=== PATIENT | male | born 1985 | race Caucasian/White ===

== ENCOUNTER 2019-01-03 11:20 | Emergency (ER) | payer OTHER ==
--- NOTE | 2019-01-03 12:11 | ED Physician Documentation ---
PD HPI BACK INJURY - Stated complaint Stated Complaint: BACK PX - History obtained from History obtained from: Patient - History of Present Illness Location: Right, Left (has had pain left lower lumbar with radiation to left posterior leg and numbness at times. No weakness. Has seen PMD at [facility] and had Xray last week, and referring for accupuncture and PT. Rx Flexeril and tramadol, meloxicam. Had been doing okay. Last night, just bent over and felt a pop and abrupt pain to right low back, with spasms and pain on ROM. No new neuro symptoms. No bladder difficulty. Meds at home not effective.), Lower Type of injury: Twist Where injury occurred: Home Timing - onset: Last night (with new pain abruptly on right side.) Timing - details: Abrupt onset, Still present Quality: Pain, Spasm, Aching Improved by: No: Rest, Ice, Meds Worsened by: Moving, Palpating Associated symptoms: Numbness (left posterior leg intermittent.). No: Fever, Weakness, Incontinent of urine Similar symptoms before: No diagnosis (presumed disc/pinched nerve with left leg symptoms and low back pain the past month or more. Had not had the abrupt pain until last night.) Recently seen: Clinic ([facility] last week with xray and Rx as noted above.) Review of Systems Constitutional: denies: Fever, Chills Nose: denies: Rhinorrhea / runny nose, Congestion Throat: denies: Sore throat Respiratory: denies: Cough GI: denies: Abdominal Pain, Nausea, Vomiting, Diarrhea Skin: denies: Rash, Lesions PD PAST MEDICAL HISTORY - Past Medical History Cardiovascular: None Respiratory: None Neuro: None Endocrine/Autoimmune: None Musculoskeletal: Chronic back pain (for past month or more. ) - Present Medications Home Medications: Ambulatory Orders Medication Instructions Recorded Confirmed Oxycodone HCl/Acetaminophen 1 each PO Q6H PRN #20 tablet 01/03/19 [Oxycodone-Acetaminophen 5-325] Tramadol HCl [Tramadol HCl ER] 100 mg PO 01/03/19 01/03/19 dexAMETHasone [Decadron] 4 mg PO DAILY #5 tablet 01/03/19 diazePAM [Diazepam] 5 mg PO TID PRN #20 tablet 01/03/19 - Allergies Allergies/Adverse Reactions: Allergies Allergy/AdvReac Type Severity Reaction Status Date / Time No Known Drug Allergies Allergy Verified 01/03/19 11:28 - Social History Does the pt smoke?: No Smoking Status: Former smoker Does the pt have substance abuse?: No PD ED PE NORMAL - Vitals Vital signs reviewed: Yes - General General: Alert and oriented X 3, Well developed/nourished, Other (appears in considerable pain and is tilted to right some in low back c/w spasms. Very guarded ROM. ) - Neck Neck: Supple, no meningeal sign, No adenopathy - Cardiac Cardiac: RRR, No murmur - Respiratory Respiratory: Clear bilaterally - Abdomen Abdomen: Normal bowel sounds, Soft, Non tender, Non distended - Back Back: Other (Tender both left and right muscles, more to right, with spasms felt. ) - Derm Derm: Normal color, Warm and dry - Extremities Extremities: Normal ROM s pain, No edema, No calf tenderness / cord - Neuro Neuro: Alert and oriented X 3, No motor deficit, Other (lessened sensation to touch posterior calf and thigh, c/w L5. But normal motor in legs/feet and normal knee reflexes. ) Results - Vitals Vitals: Vital Signs - 24 hr 01/03/19 01/03/19 11:27 14:12 Temperature 36.9 C 36.9 C Heart Rate 81 76 Respiratory 20 20 Rate Blood Pressure 158/82 H 153/79 H O2 Saturation 100 97 Oxygen O2 Source Room air - Rads (name of study) lumbar CT Radiology: Prelim report reviewed (L5 left herniated disc and osteophytes impinging to the left L5 and S1 foramina. No central herniation. ), See rad report PD MEDICAL DECISION MAKING - ED course Complexity details: re-evaluated patient (improved fairly well with IM meds. ), considered differential (has symptoms suggestive of disc/nerve root to left for awhile (1-2 months) but now abrupt pain last night with just bending. No neuro symptoms but abrupt pain so consider potential bony process too. Can get CT to eval. ), d/w patient Departure - Departure Disposition: 01 Home, Self Care Clinical Impression: Lumbar disc herniation with radiculopathy Acute lumbar myofascial strain Qualifiers: Encounter type: initial encounter Qualified Code(s): S39.012A - Strain of muscle, fascia and tendon of lower back, initial encounter Condition: Stable Record reviewed to determine appropriate education?: Yes Instructions: ED Sprain Strain Lumbar [facility] [Provider Group] Prescriptions: dexAMETHasone [Decadron] 4 mg PO DAILY #5 tablet diazePAM [Diazepam] 5 mg PO TID PRN #20 tablet PRN Reason: Spasms Oxycodone HCl/Acetaminophen [Oxycodone-Acetaminophen 5-325] 1 each PO Q6H PRN #20 tablet PRN Reason: Pain Comments: Heat and gentle stretching for the back. Massage or chiropractic can help as well with the spasms and alignment in the short-term. Continue your meloxicam anti-inflammatory. Add Decadron steroid anti- inflammatory as well. Add diazepam muscle relaxant in the short-term which will be a little stronger than your current cyclobenzaprine. Return to your cyclobenzaprine after that. Add Tylenol or oxycodone if needed short-term for worse pain. I would anticipate improvement in the pain down to about mild baseline as you had previously over the next several days to a week. [facility]. There is a herniated disc at the L5/S1 with some osteophytes as well that are showing impingement on the L5 and S1 nerve roots. The main canal is not impinged. Forms: Activity restrictions Discharge Date/Time: 01/03/19 14:13
[2019-01-03] MEDS ORDERED: HYDROmorphone 1 MG/ML CARPUJECT IM STA (12:32)
[2019-01-03] MEDS ORDERED: KETOROLAC 60 MG/2 ML VIAL IM STA (12:32)
[2019-01-03] MEDS ORDERED: diazePAM 5 MG TABLET PO STA (12:33)
--- NOTE | 2019-01-03 13:29 | CT Report ---
Reason: abrupt low back pain last evening with bending Procedure Date: 01/03/2019 Accession Number: [id number] / [id number] Procedure: CT - LUMBAR SPINE WO CPT Code: FULL RESULT: EXAM: CT LUMBAR SPINE WITHOUT CONTRAST EXAM DATE: 01/03/2019 12:51 PM. CLINICAL HISTORY: Abrupt low back pain last evening with bending. COMPARISONS: None. TECHNIQUE: Thin-section axial images were acquired of the lumbar spine from T12 to S1 without contrast. Post-processing: Coronal and sagittal reformats. Other: None. In accordance with CT protocol optimization, one or more of the following dose reduction techniques were utilized for this exam: automated exposure control, adjustment of mA and/or KV based on patient size, or use of iterative reconstructive technique. FINDINGS: Alignment: No scoliosis or spondylolisthesis. Bones: Five fmi-ena-chogore lumbar vertebral bodies are present. There is a small endplate anomaly at the inferior endplate of T11. Disk Levels/Facets: T12-L1: Unremarkable. L1-L2: Unremarkable. L2-L3: Unremarkable. L3-L4: There is a right paracentral disk protrusion causing mild canal narrowing. The foramina are patent. L4-L5: There is a broad-based posterior disk bulge causing mild canal narrowing. There is minimal foraminal narrowing. L5-S1: There is a left paracentral disk protrusion with osteophyte formation posteriorly deviating the left S1 nerve root in the lateral recess. There is mild canal narrowing. There is moderate left foraminal narrowing, with osteophytes contacting the left L5 nerve root in the neural foramen. The right neural foramen is patent. Musculature: Normal. No fatty atrophy. Other: The visualized retroperitoneum is unremarkable. IMPRESSION: 1. Mild degenerative change. 2. L5-S1: Left paracentral disk protrusion with osteophyte formation posteriorly deviating the left S1 nerve root in the lateral recess. Moderate left foraminal narrowing. Osteophytes contact the left L5 nerve root in the neural foramen. RADIA
[2019-01-03] MEDS ORDERED: oxyCODONE 5 MG TABLET PO STA (13:55)
[2019-01-03] MEDS ORDERED: CHERRY SYRUP 10 ML UDC PO ONE (13:56)
[2019-01-03] MEDS ORDERED: DEXAMETHASONE 10 MG/ML VIAL PO STA (13:56)
[2019-01-03 14:13] VITALS: BP 153/79
== END 2019-01-03 14:13 | disposition home or self-care (01) ==
LOC: ED 11:20
DX: S39.012A Strain of muscle, fascia and tendon of lower back, initial encounter (principal); M51.16 Intervertebral disc disorders with radiculopathy, lumbar region; X58.XXXA Exposure to other specified factors, initial encounter; Y92.009 Unspecified place in unspecified non-institutional (private) residence as the place of occurrence of the external cause
CPT/HCPCS: 72131; 96372; 99284; A9270; J1170

== ENCOUNTER 2019-02-05 13:45 | Outpatient (CLI) | payer OTHER ==
--- NOTE | 2019-02-05 16:52 | Ultrasound Report ---
Reason: LEFT INGUINAL DISCOMFORT Procedure Date: 02/05/2019 Accession Number: [id number] / [id number] Procedure: US - Pelvic Limited or F/U CPT Code: Final Report FULL RESULT: EXAM: LEFT INGUINAL ULTRASOUND EXAM DATE: 02/05/2019 02:27 PM. CLINICAL HISTORY: LEFT INGUINAL DISCOMFORT. COMPARISON: None. TECHNIQUE: Real-time sonographic imaging of the left inguinal canal and vascular structures, including color-flow, was performed by the orange grower. Multiple financial service representative static images were saved for review. FINDINGS: Hernia: None identified with or without Valsalva. Soft Tissues: Normal. No fluid collections or adenopathy. Other: None. IMPRESSION: Cage Clerk unable to elicit a left inguinal hernia without and with provocative maneuvers. RADIA
== END 2019-02-05 13:46 | disposition home or self-care (01) ==
LOC: DI 13:45
PROVIDERS: ATTEND Physician Assistant
DX: R10.30 Lower abdominal pain, unspecified (principal)
CPT/HCPCS: 76857

== ENCOUNTER 2019-02-19 13:18 | Outpatient (CLI) | payer OTHER ==
--- NOTE | 2019-02-20 16:31 | MRI Report ---
Reason: LOW BACK PAIN Procedure Date: 02/19/2019 Accession Number: [id number] / [id number] Procedure: MRI - Lumbar Spine W/O CPT Code: Final Report FULL RESULT: EXAM: MRI LUMBAR SPINE WITHOUT CONTRAST EXAM DATE: 02/19/2019 02:01 PM. CLINICAL HISTORY: Low back pain. COMPARISON: LUMBAR SPINE W/O 01/03/2019 12:45 PM. TECHNIQUE: Multiplanar, multisequence T1-weighted and fluid-sensitive sequences of the lumbar spine from T12 to S1 without contrast. Other: None. FINDINGS: Spinal Canal: The conus terminates at L1-L2. The conus medullaris and cauda equina are unremarkable. Alignment: There is a 2 mm retrolisthesis at L4-L5. Bone Marrow: Five rbx-vsb-xzwozsx lumbar vertebral bodies are assumed. No gross fractures or bone lesions. No bone marrow replacement. Disk Levels/Facets: T12-L1: Unremarkable. L1-L2: Unremarkable. L2-L3: Unremarkable. L3-L4: There is a central and right paracentral disk extrusion extending superiorly over the posterior surface of the L3 vertebral body. It causes mild canal narrowing. There is mild bilateral foraminal narrowing. L4-L5: There is a left paracentral annular tear with a small disk extrusion contacting the left L5 nerve root in the lateral recess. There is mild canal narrowing. There is minimal foraminal narrowing. L5-S1: There is a broad-based posterior disk bulge. There is a left paracentral disk osteophyte complex. The findings cause mild canal narrowing. The disk osteophyte complex contacts the left S1 nerve root. There is mild bilateral foraminal narrowing. Musculature: Normal. No edema or fatty atrophy. Other: The partially visualized retroperitoneum is unremarkable. IMPRESSION: 1. L3-L4: There is a central and right paracentral disk extrusion causing mild canal narrowing. There is mild bilateral foraminal narrowing. 2. L4-L5: There is a left paracentral annular tear with a small disk extrusion contacting the left L5 nerve root in the lateral recess. There is mild canal narrowing. There is minimal foraminal narrowing. 3. L5-S1: There is a left paracentral disk osteophyte complex causing mild canal narrowing. The disk osteophyte complex contacts the left S1 nerve root. There is mild bilateral foraminal narrowing. Comment: The following findings are so common in adults without low back pain that while we report their presence, they must be interpreted with caution and in the context of the clinical situation. (Reference Karolinak et al, Spine 2001) Prevalence of findings in patients without low back pain: Disk degeneration (any evidence): 92% Disk desiccation/T2 signal loss: 83% Disk height loss: 56% Disk bulge: 64% Disk protrusion: 32% Annular tear/high intensity zone: 38% RADIA
== END 2019-02-19 13:19 | disposition home or self-care (01) ==
LOC: DI 13:18
PROVIDERS: ATTEND Physician Assistant
DX: M51.16 Intervertebral disc disorders with radiculopathy, lumbar region (principal); M25.78 Osteophyte, vertebrae
CPT/HCPCS: 72148

== ENCOUNTER 2019-03-13 16:32 | Emergency (ER) | payer OTHER ==
[2019-03-13] MEDS ORDERED: BACITRACIN ZINC OINT 1 PACKET TOP STA (17:34)
--- NOTE | 2019-03-13 17:36 | ED Physician Documentation ---
PD HPI UPPER EXT INJURY - Stated complaint Stated Complaint: RT FOREARM LAC - Chief complaint Chief Complaint: Laceration - History obtained from History obtained from: Patient - History of Present Illness Location: Right, Forearm Type of injury: Laceration Where injury occurred: Work Timing - onset: How many hours ago (5) Timing - duration: Hours (5) Timing - details: Abrupt onset Pain level max: 3 Pain level now: 3 Improved by: Rest Worsened by: Moving, Palpating Associated symptoms: No: Weakness, Numbness, Tingling, Swelling - Additonal information Additional information: cut on titanium airplane part fin. TD UTD. Pt is right handed. Review of Systems Constitutional: denies: Fever, Chills Skin: denies: Rash Musculoskeletal: denies: Neck pain, Back pain Neurologic: denies: Headache PD PAST MEDICAL HISTORY - Past Medical History Cardiovascular: None Respiratory: None Neuro: None Endocrine/Autoimmune: None Musculoskeletal: Chronic back pain - Present Medications Home Medications: Ambulatory Orders Medication Instructions Recorded Confirmed Oxycodone HCl/Acetaminophen 1 each PO Q6H PRN #20 tablet 01/03/19 [Oxycodone-Acetaminophen 5-325] Tramadol HCl [Tramadol HCl ER] 100 mg PO 01/03/19 01/03/19 dexAMETHasone [Decadron] 4 mg PO DAILY #5 tablet 01/03/19 diazePAM [Diazepam] 5 mg PO TID PRN #20 tablet 01/03/19 - Allergies Allergies/Adverse Reactions: Allergies Allergy/AdvReac Type Severity Reaction Status Date / Time No Known Drug Allergies Allergy Verified 01/03/19 11:28 - Social History Does the pt smoke?: No Smoking Status: Never smoker Does the pt have substance abuse?: No PD ED PE NORMAL - Vitals Vital signs reviewed: Yes - General General: Alert and oriented X 3, No acute distress - HEENT HEENT: Moist mucous membranes - Neck Neck: Supple, no meningeal sign - Derm Derm: Warm and dry - Extremities Extremities: Other (2 cm laceration to the volar aspect of the mid forearm. Neurovascularly intact. No evidence of tendon injury.) - Neuro Neuro: Alert and oriented X 3 - Psych Psych: Normal mood, Normal affect Results - Vitals Vitals: Vital Signs - 24 hr 03/13/19 16:39 Temperature 36.8 C Heart Rate 80 Respiratory 18 Rate Blood Pressure 141/83 H O2 Saturation 99 Oxygen O2 Source Room air Procedures - Laceration (location) Right forearm Length in cm: 2 Wound type: Linear, Into subcut fat, Clean Neurovascular status: Sensory intact, Motor intact, Vascular intact Tendon involvement: Tendon intact. No: Tendon Injury Wound Preparation: Irrigated copiously NS Skin layer closure: [place] (3) Other: Patient tolerated well, No complications, Neurovascular intact, Dressing applied, Tetanus UTD Complexity: Simple PD MEDICAL DECISION MAKING - ED course Complexity details: considered differential, d/w patient ED course: Laceration repaired. Tolerated well. Neurovascularly intact. Tetanus is up-to-date. Patient is right-handed. Warnings of infection and instructions on wound care given at bedside. Also counseled on how to minimize scarring. Patient counseled regarding signs and symptoms for which I believe and urgent re-evaluation would be necessary. Patient with good understanding of and agreement to plan and is comfortable going home at this time This document was made in part using voice recognition software. While efforts are made to proofread this document, sound alike and grammatical errors may occur. Departure - Departure Disposition: 01 Home, Self Care Clinical Impression: Forearm laceration Qualifiers: Encounter type: initial encounter Laterality: right Qualified Code(s): S51.811A - Laceration without foreign body of right forearm, initial encounter Condition: Good Instructions: ED Laceration Ext Sutr Stap Tape Follow-Up: Your,doctor in 10 - 14 days for staple removal [Other] Comments: Return if you worsen., Especially if you notice redness, swelling or drainage from the wound. Keep the wound clean. The justo should be removed either here or with your doctor in approximately 10 to 14 days.
[2019-03-13 18:16] VITALS: BP 138/80
== END 2019-03-13 18:15 | disposition home or self-care (01) ==
LOC: ED 16:32
DX: S51.811A Laceration without foreign body of right forearm, initial encounter (principal); W45.8XXA Other foreign body or object entering through skin, initial encounter; Y99.0 Civilian activity done for income or pay
CPT/HCPCS: 1040M; 12001; 99282; A9270

== ENCOUNTER 2019-03-27 10:59 | Emergency (ER) | payer OTHER ==
[2019-03-27 11:10] VITALS: BP 140/79
--- NOTE | 2019-03-27 12:14 | ED Physician Documentation ---
PD HPI WOUND RECHECK - Stated complaint Stated Complaint: SUTURE REMOVEL - Chief complaint Chief Complaint: Wound - Histroy obtained from History obtained from: Patient - History of Present Illness Location: Right Upper Extremity Timing - onset: How many days ago (14) Associated symptoms: Other (none) Similar symptoms before: Diagnosis (laceration) Recently seen: Emergency Dept - Additional information Additional information: 33-year-old male was seen by Dr. Mack and had justo placed into his right forearm.He has no complaints in the forearm is healed up well. Review of Systems Constitutional: denies: Fever Eyes: denies: Decreased vision Ears: denies: Ear pain Nose: denies: Congestion Throat: denies: Sore throat Respiratory: denies: Dyspnea Skin: reports: Laceration (s) PD PAST MEDICAL HISTORY - Past Medical History Cardiovascular: None Respiratory: None Neuro: None Endocrine/Autoimmune: None Musculoskeletal: Chronic back pain - Present Medications Home Medications: Ambulatory Orders Medication Instructions Recorded Confirmed Cyclobenzaprine [Flexeril] 03/27/19 Duloxetine HCl [Cymbalta] 20 mg PO 03/27/19 - Allergies Allergies/Adverse Reactions: Allergies Allergy/AdvReac Type Severity Reaction Status Date / Time No Known Drug Allergies Allergy Verified 03/27/19 11:10 - Social History Does the pt smoke?: No Smoking Status: Never smoker Does the pt have substance abuse?: No PD ED PE NORMAL - Vitals Vital signs reviewed: Yes (hypertnsive) - General General: Alert and oriented X 3, No acute distress, Well developed/nourished - HEENT HEENT: Atraumatic, PERRL, EOMI - Neck Neck: Supple, no meningeal sign - Respiratory Respiratory: No respiratory distress - Derm Derm: Normal color, Warm and dry, No rash - Extremities Extremities: No deformity, No edema, No calf tenderness / cord, Other (The wound appears well healed and the tatoo appears lined up ) - Neuro Neuro: Alert and oriented X 3, entertainment dancer 2-12 intact, No motor deficit, No sensory deficit, Normal speech Eye Opening: Spontaneous Motor: Obeys Commands Verbal: Oriented GCS Score: 15 - Psych Psych: Normal mood, Normal affect Results - Vitals Vitals: Vital Signs - 24 hr 03/27/19 11:08 Temperature 36.4 C L Heart Rate 85 Respiratory 18 Rate Blood Pressure 140/79 H O2 Saturation 97 Oxygen O2 Source Room air Procedures - Suture/staple Removal (location) forearm Suture/staple removal: # justo (3), No complications PD MEDICAL DECISION MAKING - ED course Complexity details: reviewed old records, considered differential, d/w patient ED course: 33-year-old male with a well-healed right forearm laceration has a justo removed. Departure - Departure Disposition: 01 Home, Self Care Clinical Impression: Forearm laceration Qualifiers: Encounter type: subsequent encounter Laterality: right Qualified Code(s): S51.811D - Laceration without foreign body of right forearm, subsequent encounter Condition: Stable Instructions: ED Stap Removal No Complication Follow-Up: [facility] [Provider Group]
== END 2019-03-27 12:28 | disposition home or self-care (01) ==
LOC: ED 10:59
DX: S51.811D Laceration without foreign body of right forearm, subsequent encounter (principal); X58.XXXD Exposure to other specified factors, subsequent encounter
CPT/HCPCS: 99281